=== PATIENT | male | born 1950 | race Caucasian/White ===

== ENCOUNTER 2020-07-02 17:27 | Emergency (ER) | payer MEDICARE, OTHER ==
[~2020-07-02] VITALS: Ht 188 cm; Wt 89.4 kg
[2020-07-02] MEDS ORDERED: ELIQUIS5 MG PO (18:25)
[2020-07-02] MEDS ORDERED: COREG25 MG PO (18:25)
[2020-07-02] MEDS ORDERED: CLOPIDOGREL75 MG PO (18:26)
[2020-07-02] MEDS ORDERED: LIPITOR40 MG PO (18:26)
[2020-07-02] MEDS ORDERED: PANTOPRAZOLE SO20 MG PO (18:27)
[2020-07-02] MEDS ORDERED: ALDACTONE25 MG PO (18:27)
[2020-07-02] MEDS ORDERED: ALPRAZOLAM0.5 MG PO (18:28)
[2020-07-02] MEDS ORDERED: FUROSEMIDE40 MG PO (18:28)
[2020-07-02] MEDS ORDERED: LITHIUM CARBON300 M1 PO (18:29)
[2020-07-02] MEDS ORDERED: LAMICTAL150 MG PO (18:30)
[2020-07-02] MEDS ORDERED: MELATONIN3 MG PO (18:31)
[2020-07-02] MEDS ORDERED: FISH OIL 1,201200 MG PO (18:31)
[2020-07-02] MEDS ORDERED: MEN'S MULTIVIT1 EACH PO (18:32)
--- NOTE | 2020-07-03 12:51 | EKG ---
[facility] [address] [facility] [place], [place] [address] Signed Sinus rhythm with 1st degree AV block Cannot rule out Anteroseptal infarct , age undetermined Abnormal ECG No previous ECGs available Confirmed by YOHAN GOMEZ DO ([id number]) on 07/03/2020 12:50:46 PM Electronically Signed By: YOHAN GOMEZ DO 07/03/20 1251 PATIENT NAME: JACLYN HAWK Electrocardiogram DATE OF : 46 PHYSICIAN: YOHAN GOMEZ DO REPORT #: [id number] REPORT IS CONFIDENTIAL AND NOT TO BE RELEASED WITHOUT AUTHORIZATION
--- NOTE | 2020-07-05 07:31 | PATH ---
[facility] [address] [facility] [place], [place] [address] Signed ORDERING PHYSICIAN: Mk More MD PATIENT NAME: JACLYN HAWK GENDER: M : 1950 SPECIMEN(S): No Source Given MOLECULAR PATHOLOGY RESULTS: SARS-CoV-2 Not Detected ADDITIONAL NOTES.: The [place] [employer] SARS-CoV-2 Assay is a multiplex real-time PCR (RT-PCR) in vitro diagnostic test intended for the qualitative detection of RNA from SARS-CoV-2 from individuals who meet COVID-19 clinical and/or epidemiological criteria. In general, SARS-CoV-2 RNA can be detected during the acute phase of infection. Positive results indicate the presence of SARS-CoV-2 RNA. Clinical correlation with patient history and other diagnostic information is necessary to determine patient infection status. Positive results do not rule out bacterial infection or co-infection with other viruses. Negative results do not preclude SARS-CoV-2 infection and should not be used as the sole basis for patient management decisions. Negative results must be combined with other clinical observations, patient history, and epidemiological information. The [place] [employer] SARS-CoV-2 Assay is not yet approved or cleared by the [place] FDA. When there are no FDA-approved or cleared tests available, and other criteria are met, FDA can make tests available under an emergency access mechanism called an Emergency Use Authorization (EUA). The EUA for this test is supported by the [place] of Health and Human Service's (HHS's) declaration that circumstances exist to justify the emergency use of in vitro diagnostics for the detection and/or diagnosis of the virus that causes COVID-19. This EUA will remain in effect for the duration of the COVID-19 declaration justifying emergency of IVDs, unless it is terminated or revoked by FDA, after which the test may no longer be used. The [place] [employer] SARS-CoV-2 Assay is for use only under EUA in US laboratories certified under the Clinical Laboratory Improvement Amendments of 1988 (CLIA) to perform high complexity tests. [facility] is certified under CLIA to perform high complexity PATIENT NAME: JACLYN HAWK PATHOLOGY DATE OF : 46 REPORT #: [id number] PHYSICIAN: CONNOR LOPEZ PCP: NO PRIMARY CARE PHYSICIAN REPORT IS CONFIDENTIAL AND NOT TO BE RELEASED WITHOUT AUTHORIZATION [facility] [address] [place] [id number] Signed clinical laboratory testing. PERFORMING LABORATORY.: Molecular testing was performed by [facility] [place] [address] (Android Developer: Kulwinder Armas D.O.; CLIA#: [id number]) Diagnostician: System Interface Pathologist Electronically Signed 07/05/2020 Copies: ~ PATIENT NAME: JACLYN HAWK PATHOLOGY DATE OF : 46 REPORT #: [id number] PHYSICIAN: CONNOR LOPEZ PCP: NO PRIMARY CARE PHYSICIAN REPORT IS CONFIDENTIAL AND NOT TO BE RELEASED WITHOUT AUTHORIZATION
== END 2020-07-02 19:34 | disposition home or self-care (01) ==
LOC: ED 17:27
DX: R06.00 Dyspnea, unspecified (principal); Z20.828 Contact with and (suspected) exposure to other viral communicable diseases; I25.2 Old myocardial infarction; I50.9 Heart failure, unspecified; K21.9 Gastro-esophageal reflux disease without esophagitis; E78.5 Hyperlipidemia, unspecified; J44.9 Chronic obstructive pulmonary disease, unspecified; Z87.891 Personal history of nicotine dependence; Z79.899 Other long term (current) drug therapy
CPT/HCPCS: 71045; 80053; 83735; 83880; 84484; 85025; 85379; 93005; 93010; 99285-25; C9803